=== PATIENT | female | born 1990 | race African-American/Black ===

== ENCOUNTER 2018-12-01 00:03 | Emergency (ER) | payer OTHER ==
[~2018-12-01] VITALS: Ht 188 cm; Wt 126.6 kg
[2018-12-01] MEDS ORDERED: MORPHINE SULFATE 4 MG/ML SYR/VIAL IV ONE ×2 (00:45→04:00)
[2018-12-01] MEDS ORDERED: ONDANSETRON HCL 4 MG/2 ML VIAL IV ONE (00:45)
[2018-12-01] MEDS ORDERED: HYDROmorphone HCL 2 MG/ML VL IV ONE ×2 (01:45→04:45)
[2018-12-01] MEDS ORDERED: SODIUM CHLORIDE 0.9% 500 ML IV ONE (02:41)
[2018-12-01 03:25] LABS: Basophils # (auto) 0 uL; Basophils % (auto) 0.3 % (0.0-2.0); Eosinophils # (auto) 0 uL; Eosinophils % (auto) 0.1 % (0.0-7.0); Hematocrit 34.6 % (36.0-46.0); Hemoglobin 11.6 g/dL (12.2-16.2); Lymphocytes % (auto) 8.7 % (10.0-50.0); Mean Corpuscular Hemoglobin 29.2 pg (28.0-32.0); Mean Corpuscular Hgb Conc. 33.4 g/dL (32.0-36.0); Mean Corpuscular Volume 87.3 fL (80.0-100.0); Monocytes # (auto) 0.3 uL; Neutrophils # (auto) 9.9 uL; Neutrophils % (auto) 87.9 % (37.0-80.0); Platelet Count (auto) 338 10^3/uL (140-450); Red Blood Cells 3.96 10^6/uL (4.0-5.20); Red Cell Distribution Width 13.6 % (11.8-14.3); White Blood Cell 11.3 10^3/uL (4.4-10.8)
[2018-12-01] MEDS ORDERED: PROPOFOL 10 MG/ML 20 ML IV ONE (03:30)
[2018-12-01 03:43] LABS: Calcium 9.1 mg/dL (8.5-10.1); Potassium 3.5 mmol/L (3.5-5.1)
[2018-12-01] MEDS ORDERED: MORPHINE SULF INJ 2 MG/ML SYRINGE 1ML ONE (03:56)
[2018-12-01] MEDS ORDERED: cefTRIAXone 1GM/50ML D5W 50 ML IV ONE (04:30)
[2018-12-01] MEDS ORDERED: PROPOFOL 100 ML IV ONE (04:43)
[2018-12-01 06:12] VITALS: BP 115/62
== END 2018-12-01 08:27 | disposition home or self-care (01) ==
LOC: EDBD 00:03 → ER 00:23
DX: O26.892 Other specified pregnancy related conditions, second trimester (principal); S43.004A Unspecified dislocation of right shoulder joint, initial encounter; J40 Bronchitis, not specified as acute or chronic; Z3A.19 19 weeks gestation of pregnancy; W18.11XA Fall from or off toilet without subsequent striking against object, initial encounter; Y93.89 Activity, other specified; Y92.091 Bathroom in other non-institutional residence as the place of occurrence of the external cause; Y99.8 Other external cause status
CPT/HCPCS: 23650; 36415; 71045; 73020; 73030; 76805; 80048; 84702; 85025; 94761; 96374; 96375; 96376; 99285; J1170; J2270; J2405; J2704; J7030